=== PATIENT | female | born 2000 | race Caucasian/White ===

== ENCOUNTER 2022-12-26 16:59 | Emergency (ER) | payer OTHER, SELFPAY ==
[2022-12-26 17:14] VITALS: BP 113/81; PULSE 86; RESP 18; TEMP 37.1; O2SAT 100
[2022-12-26] MEDS: Normal Saline 1,000 ML 1000 ML IV (18:59)
[2022-12-26 19:00] LABS: Abs Immature Grans 0.01 10^3/uL (0.0-0.06); Absolute Basophil Count 0.04 10^3/uL (0.0-0.2); Absolute Eosinophil Count 0.01 10^3/uL (0.0-0.7); Absolute Lymphocyte Count 1.58 10^3/uL (1.2-3.4); Absolute Monocyte Count 0.43 10^3/uL (0.1-0.8); Absolute Neutrophil Count 2.95 10^3/uL (1.2-6.7); Basophils % 0.8; Eosinophils % 0.2; HCT 32.1 % (36.0-46.0); Immature Grans % 0.2; Lymphocytes % 31.5; MCH 19.1 pg (27.0-33.0); MCV 68 fL (80-95); MPV 9.8 fL (8.0-11.0); Monocytes % 8.6; Neutrophils % 58.7; Platelet Count 458 10^3/uL (130-400); RDW 17.7 % (11.7-14.6); WBC 5.02 10^3/uL (4.4-10.8)
--- NOTE | 2022-12-26 19:00 | RT.EKG_ITS ---
APPROVED REPORT Exam: Resting ECG Reason for Exam: syncope Patient Location: E HR:77 bpm ECG Measurements Heart Rate 77 AXIS ID 124 P 54 QRSd 85 QRS 76 QT 405 T 28 QTc 459 Conclusion Sinus rhythm...normal P axis, V-rate 60- 99
[2022-12-26 19:07] LABS: Microcytosis 1+
[2022-12-26 19:13] LABS: Hypochromasia 2+
[2022-12-26 19:15] LABS: ALT 30 U/L (14-59); AST 22 U/L (15-37); Albumin 4.3 g/dL (3.4-5.0); Alkaline Phosphatase 58 U/L (46-116); Anion Gap 6.8 mmol/L (3-11); BUN 8 mg/dL (7-18); Bilirubin, Total 0.3 mg/dL (0.2-1.0); CO2 29.2 mmol/L (21.0-32.0); CREATININE 0.8 mg/dL (0.55-1.02); Calcium 8.8 mg/dL (8.5-10.1); Chloride 102 mmol/L (98-107); Estimated GFR 106.77 (mL/min/1.73m2); Glucose 117 mg/dL (74-106); Magnesium 2.2 mg/dL (1.8-2.4); Potassium 3.8 mmol/L (3.5-5.1); Sodium 138 mmol/L (136-145); Total Protein 7.4 g/dL (6.4-8.2)
[2022-12-26 19:26] LABS: TSH 0.53 uIU/mL (0.36-3.74)
[2022-12-26 19:55] VITALS: BP 129/71; PULSE 92; RESP 16; TEMP 36.7; O2SAT 100
--- NOTE | 2022-12-27 12:19 | ED.GENADUL_ITS ---
Discharge Plan Disposition Patient Disposition: Home Discharge Details Clinical Impression: Syncope, Laceration of scalp, Anemia Primary Care Provider: Mitzi,Local ED Provider: Leslie Beltrán Home Meds and New Rx's Prescriptions: Continued dextroamphetamine-amphetamine [Adderall XR] 20 mg Capsule,Extended Release 24hr 20 mg PO DAILY Discharge Instructions Instructions: Syncope (ED), Contusion in Adults (ED), Anemia (ED) Additional Instructions: Follow-up with your doctor regarding likely iron deficiency anemia Refrain from driving or any alcohol consumption this evening Let your doctor know he had a syncopal or fainting episode Should you develop worsening headache, dizziness, please return immediately for reassessment Tylenol as needed for pain Keep yourself hydrated with fluids hgb: 9, hct 32.1, MCV 68 Staple removal in 7 days Discharge Data Discharge Date/Time-TO BE ENTERED AT DEPARTURE: 12/26/22 19:58 Medical Decision Making Patient was monitored on telemetry for syncopal event for approximately 3 hours in the emergency department, I did consider head CT but she has no headache and is fully alert and oriented I did place 2 george in her head to close laceration which she tolerated well Her electrolytes are within normal limits, she has mild what appears to be iron deficiency anemia, she lives in [place] and she is instructed to follow-up with her doctor regarding this finding this is an incidental finding and likely not related to her current presentation as she is had syncope in the past She is encouraged to start an iron supplement She is hemodynamically stable, alert and oriented, she is discharged home in the care of her friends, her thyroid and electrolytes are within normal limits her is negative She may need an outpatient Holter monitor at discretion of her doctor Return precautions reviewed and patient expressed understanding Medical Records Medical records reviewed: Yes I reviewed the patient's medical records. Lab Data Lab results reviewed: Yes I reviewed the patient's lab results. HPI General Date/Time Provider Initiated Documentation: 12/26/22 17:05 . HPI Narrative: This 22-year-old female presents with report of syncopal event, she was lifting her hands above her head and had just stood up, she passed out, hitting her head on the wall receiving laceration. She had approximately 10 seconds episode of loss of consciousness. He states this is happened numerous times when she stretches. She denies any recent neck manipulations, headache, dizziness, history of coagulopathy or chance of . She is otherwise reportedly healthy. She denies any illicit drug use. Related Data Home Medications Medication Instructions Recorded Confirmed dextroamphetamine-amphetamine ER 20 mg PO DAILY 12/26/22 12/26/22 20 mg 24hr capsule,extend release (Adderall XR) Allergies Allergy/AdvReac Type Severity Reaction Status Date / Time No Known Allergies Allergy Unverified 12/26/22 17:18 General Stated Complaint: Dizzy/Sync IZABEL: 3 PFSH All Active Problems (Updated 12/26/22 @ 19:52 by OLGA Hernández) Syncope (Chronic) Laceration of scalp (Acute) Anemia (Chronic) Social History Smoking/Tobacco Use Status: Current every day Tobacco Type: e-cigarettes Smoking risk assessment performed?: Yes Alcohol Intake: current Alcohol Intake frequency: a few times a week Drug use: Daily Substance use type: marijuana Do you feel safe at home: Yes Do you feel safe in your relationship?: Yes Course Vital Signs Vital signs: Vital Signs Temperature 37.1 C 12/26/22 17:14 Pulse 86 12/26/22 17:14 Respiratory Rate 18 12/26/22 17:14 Blood Pressure 113/81 12/26/22 17:14 Pulse Oximetry 100 12/26/22 17:14 Temperature 36.7 C 12/26/22 19:55 Temperature Source Skin 12/26/22 17:14 Pulse 92 H 12/26/22 19:55 Respiratory Rate 16 12/26/22 19:55 Respiratory Effort Normal 12/26/22 18:27 Respiratory Depth Normal 12/26/22 18:27 Respiratory Pattern Normal 12/26/22 18:27 Blood Pressure 129/71 12/26/22 19:55 Blood Pressure Position Sitting 12/26/22 17:14 Pulse Oximetry 100 12/26/22 19:55 Oxygen Delivery Method Room Air 12/26/22 17:14 Oxygen Flow Rate 0 12/26/22 17:14 Pain Level 0 12/26/22 19:55 Lab/Test Results Lab/Test Results: Laboratory Tests Range/Units 12/26/22 12/26/22 12/26/22 18:30 18:30 18:30 WBC (4.4-10.8) 10^3/uL 5.02 RBC (3.93-5.22) 10^6/uL 4.70 Hgb (11.2-15.7) g/dL 9.0 L Hct (36.0-46.0) % 32.1 L MCV (80-95) fL 68 L MCH (27.0-33.0) pg 19.1 L MCHC (32.0-36.0) % 28.0 L RDW (11.7-14.6) % 17.7 H Plt Count (130-400) 10^3/uL 458 H MPV (8.0-11.0) fL 9.8 Immature Gran % 0.2 Neutrophils % 58.7 Lymphocytes % 31.5 Monocytes % 8.6 Eosinophils % 0.2 Basophils % 0.8 Nucleated RBC % (0.0-0.3) % 0.0 Absolute Neutrophils (1.2-6.7) 10^3/uL 2.95 Absolute Lymphocytes (1.2-3.4) 10^3/uL 1.58 Absolute Monocytes (0.1-0.8) 10^3/uL 0.43 Absolute Eosinophils (0.0-0.7) 10^3/uL 0.01 Absolute Basophils (0.0-0.2) 10^3/uL 0.04 Hypochromasia 2+ Microcytosis 1+ Sodium (136-145) mmol/L 138 Potassium (3.5-5.1) mmol/L 3.8 Chloride (98-107) mmol/L 102 Carbon Dioxide (21.0-32.0) mmol/L 29.2 Anion Gap (3-11) mmol/L 6.8 BUN (7-18) mg/dL 8 Creatinine (0.55-1.02) mg/dL 0.8 Est GFR (CKD-EPI 2020) (mL/min/1.73m2) 106.77 Glucose (74-106) mg/dL 117 H Calcium (8.5-10.1) mg/dL 8.8 Magnesium (1.8-2.4) mg/dL 2.2 Total Bilirubin (0.2-1.0) mg/dL 0.3 AST (15-37) U/L 22 ALT (14-59) U/L 30 Alkaline Phosphatase (46-116) U/L 58 Total Protein (6.4-8.2) g/dL 7.4 Albumin (3.4-5.0) g/dL 4.3 TSH (0.36-3.74) uIU/mL 0.53 POC- Test(urine) Negative Procedures Laceration Laceration 1: Site: scalp Size (cm): 2 Description: linear Depth: simple, single layer Pre-repair: wound explored Skin layer closed with: other (staple) Size (cm): other Number of sutures: 2 PAWSS Have you Been Recently Intoxicated or Drunk Within the Last 30 days?: Yes Have you Ever Experienced Previous Episodes of Alcohol Withdrawal?: No Have you ever Experienced Withdrawal Seizures?: No Have you ever Experienced Delirium Tremens(DT)s?: No Have you ever undergone Alcohol Rehabilitation Treatment (i.e, inpt ot outpatient treatment programs)?: No Have you ever Experienced Blackouts?: No Have you ever Combined Alcohol with other Downers within the last 90 days?: No Have you ever Combined Alcohol with any other Substance of Abuse during the last 90 days?: No Positive Blood Alcohol level on Presentation? [PCS.BAL]: No Evidence of Increased Autonomic Activity (i.e. HR>120, tremor, sweating, agitation, nausea)?: No Result: 1
== END 2022-12-26 19:58 | disposition home or self-care (01) ==
PROVIDERS: Emergency Provider Physician Assistant
DX: R55 Syncope and collapse (principal); D64.9 Anemia, unspecified; S01.01XA Laceration without foreign body of scalp, initial encounter; W01.0XXA Fall on same level from slipping, tripping and stumbling without subsequent striking against object, initial encounter
CPT/HCPCS: 12001; 36415; 80053; 81025; 93005; 96360; 99284; 83735; 84443; 85025; 93010